=== PATIENT | male | born 1980 | race Caucasian/White ===

== ENCOUNTER → 2017-12-16 | Outpatient (REF) ==
[~2017-12-16] MED LIST: ASPIRIN EC81 MG PO; CIPRO500 MG PO; CIPROFLOXACN500 MG PO; CYCLOBENZAPR10 MG PO; FLOMAX0.4 M1 PO; GLYBURIDE5 M1 PO; LORTAB5 PO; METFORMIN HCL750 MG PO; NO CURRENT MEDS; NO MEDS; PERCOCET 5/325M1 TAB OR; PERCOCET 5/325M1 TAB PO; PRILOSEC40 MG PO; SLEEP MED PO; TESTOSTERONE IM
== END | disposition home or self-care (01) | DRG 639 ==
LOC: LABSPEC 07:39
PROVIDERS: ATTEND Internal Medicine Endocrinology, Diabetes & Metabolism
DX: E11.65 Type 2 diabetes mellitus with hyperglycemia (principal); E78.2 Mixed hyperlipidemia; Z13.29 Encounter for screening for other suspected endocrine disorder

== ENCOUNTER 2019-04-15 | Emergency (ER) | payer BC ==
[~2019-04-15] MED LIST changes: +DICLOFENAC75 MG PO; +FIASP100 UNIT/M; +MEDDOSEPAK PO; +OZEMPIC2 MG/1.5 M; +TOUJEO SOL300 UNIT/M; +TRAMADOL HCL50 MG PO
[2019-04-15] MEDS ORDERED: OZEMPIC2 MG/1.5 M SC (05:17)
[2019-04-15 05:38] LABS: HEMATOCRIT 52.5 % (39.0-50.0); HEMOGLOBIN 17.3 g/dl (14.0-18.0); IMMATURE GRANULOCYTES 0.5 % (0.0-5.0); MEAN CELL VOLUME 86.9 fL CALC (80.0-100.0); MEAN CORPUSCULAR HGB 28.6 pG CALC (26.0-32.0); NEUT# 12.18 thou/uL (1.82-7.42); RED BLOOD COUNT 6.04 mill/uL (4.70-6.10); RED CELL DISTRI WIDTH 12.9 % (11.5-15.5)
[2019-04-15 06:10] LABS: ALBUMIN 4.2 g/dL (3.2-5.0); ALKALINE PHOSPHATASE 131 u/l (38-126); ANION GAP 13 (6-22 (CALC)); BILIRUBIN, TOTAL 0.7 mg/dL (0.0-1.4); BUN 13 mg/dL (9-20); BUN/CREATININE RATIO 16 (12-20 (CALC)); CARBON DIOXIDE 27 mmol/l (22-30); CHLORIDE 105 mmol/l (95-108); CREATININE 0.8 mg/dL (0.7-1.3); GFR > 60 ML/MIN (>=60 (CALC)); GFR FOR AFR.AMER. > 60 ML/MIN (>=60 (CALC)); POTASSIUM 4.4 mmol/l (3.5-5.1); SGOT/AST 34 u/l (17-59); SODIUM 140 mmol/l (137-146); TOTAL PROTEIN 7.3 g/dL (6.3-8.2)
[2019-04-15 06:47] LABS: URINE BLOOD DIPSTICK LARGE (NEGATIVE); URINE GLUCOSE - DIPSTICK NEGATIVE (NEGATIVE); URINE KETONE NEGATIVE (NEGATIVE); URINE LEUK ESTERASE NEGATIVE (NEGATIVE); URINE NITRITE - DIPSTICK NEGATIVE (Negative); URINE PROTEIN - DIPSTICK 30 mg/dL (NEG-TRACE); URINE UROBILINOGEN - DIPSTICK 0.2 E.U./dL (0.2)
[2019-04-15 06:49] LABS: URINE BILIRUBIN - DIPSTICK SMALL (NEGATIVE); URINE COLOR DK. YELLOW
[2019-04-15 06:53] LABS: URINE RBC TNTC RBC/hpf (0-5); URINE SQUAMOUS EPITHELIAL CELL FEW EPI/hpf (0-FEW)
[2019-04-15] MEDS ORDERED: TORADOL PO (06:54)
[2019-04-15] MEDS ORDERED: TAMSULOSIN0.4 MG PO (06:54)
[2019-04-15] MEDS ORDERED: LORTAB 5/3255 MG PO (06:54)
== END 2019-04-15 07:13 | disposition home or self-care (01) | DRG 694 ==
PROVIDERS: Family Medicine
DX: N13.2 Hydronephrosis with renal and ureteral calculous obstruction (principal); E11.9 Type 2 diabetes mellitus without complications; F17.210 Nicotine dependence, cigarettes, uncomplicated

== ENCOUNTER 2019-04-18 08:15 | Emergency (ER) | payer BC ==
[~2019-04-18 08:15] MED LIST changes: +LORTAB 5/3255 MG PO; +OZEMPIC2 MG/1.5 M SC; +TAMSULOSIN0.4 MG PO; +TORADOL PO
== END 2019-04-18 08:37 | disposition left against medical advice (07) | DRG 951 ==
LOC: ED 08:15 → LWOBS 08:33 → ED 08:33 → LWOBS 08:37
DX: Z53.21 Procedure and treatment not carried out due to patient leaving prior to being seen by health care provider (principal)

== ENCOUNTER 2019-11-22 18:31 | Emergency (ER) | payer BC ==
[~2019-11-22] VITALS: Ht 195.6 cm; Wt 145.0 kg
[2019-11-22 19:24] LABS: IMMATURE GRANULOCYTES 0.5 % (0.0-5.0); MEAN CELL VOLUME 86.9 fL CALC (80.0-100.0); MEAN CORPUSCULAR HGB 28.3 pG CALC (26.0-32.0); MEAN CORPUSCULAR HGB CONC 32.6 g/dL CAL (32.0-36.0); NEUT# 10.36 thou/uL (1.82-7.42); RED BLOOD COUNT 5.41 mill/uL (4.70-6.10)
[2019-11-22 19:27] LABS: URINE BLOOD DIPSTICK LARGE (NEGATIVE); URINE COLOR YELLOW; URINE GLUCOSE - DIPSTICK NEGATIVE (NEGATIVE); URINE KETONE TRACE mg/dL (NEGATIVE); URINE LEUK ESTERASE NEGATIVE (NEGATIVE); URINE NITRITE - DIPSTICK NEGATIVE (Negative); URINE PH 5.5 (4.5-8.0); URINE PROTEIN - DIPSTICK TRACE mg/dL (NEG-TRACE); URINE SPECIFIC GRAVITY >=1.030; URINE UROBILINOGEN - DIPSTICK 0.2 E.U./dL (0.2)
[2019-11-22 19:28] LABS: URINE BILIRUBIN - DIPSTICK NEGATIVE (NEGATIVE)
[2019-11-22 19:40] LABS: URINE RBC 50-100 RBC/hpf (0-5)
[2019-11-22 19:41] LABS: HEMOGLOBIN 15.3 g/dl (14.0-18.0)
[2019-11-22 19:43] LABS: ALBUMIN 3.8 g/dL (3.2-5.0); ALKALINE PHOSPHATASE 120 u/l (38-126); ANION GAP 11 (6-22 (CALC)); BUN 13 mg/dL (9-20); BUN/CREATININE RATIO 17 (12-20 (CALC)); CARBON DIOXIDE 29 mmol/l (22-30); CHLORIDE 103 mmol/l (95-108); CREATININE 0.8 mg/dL (0.7-1.3); GFR > 60 ML/MIN (>=60 (CALC)); GFR FOR AFR.AMER. > 60 ML/MIN (>=60 (CALC)); LIPASE 75 u/l (23-300); POTASSIUM 4.2 mmol/l (3.5-5.1); SGOT/AST 18 u/l (17-59); SODIUM 138 mmol/l (137-146); TOTAL PROTEIN 6.4 g/dL (6.3-8.2)
[2019-11-22 19:44] LABS: BILIRUBIN, TOTAL 0.3 mg/dL (0.0-1.4)
[2019-11-22] MEDS ORDERED: LORTAB 1010 MG PO (20:32)
[2019-11-22] MEDS ORDERED: TAMSULOSIN0.4 MG PO (20:32)
[2019-11-22] MEDS ORDERED: KEFLEX500 M1 PO (20:32)
[2019-11-22 20:50] VITALS: BP 136/81
== END 2019-11-22 20:50 | disposition home or self-care (01) | DRG 690 ==
LOC: ED 18:31
PROVIDERS: Family Medicine
DX: N13.6 Pyonephrosis (principal); E11.9 Type 2 diabetes mellitus without complications; F17.210 Nicotine dependence, cigarettes, uncomplicated

== ENCOUNTER 2020-03-16 21:08 | Emergency (ER) | payer BC ==
[~2020-03-16] VITALS: Ht 195.6 cm; Wt 145.0 kg
[~2020-03-16 21:08] MED LIST changes: +KEFLEX500 M1 PO; +LORTAB 1010 MG PO
[2020-03-16] MEDS ORDERED: FLEXERIL5 M1 PO (21:48)
[2020-03-16 21:52] LABS: HEMATOCRIT 50.6 % (39.0-50.0); HEMOGLOBIN 16.8 g/dl (14.0-18.0); IMMATURE GRANULOCYTES 0.5 % (0.0-5.0); MEAN CELL VOLUME 87.1 fL CALC (80.0-100.0); MEAN CORPUSCULAR HGB 28.9 pG CALC (26.0-32.0); MEAN CORPUSCULAR HGB CONC 33.2 g/dL CAL (32.0-36.0); NEUT# 9.38 thou/uL (1.82-7.42); RED BLOOD COUNT 5.81 mill/uL (4.70-6.10)
[2020-03-16 22:04] LABS: ALBUMIN 4.2 g/dL (3.2-5.0); ALKALINE PHOSPHATASE 121 u/l (38-126); ANION GAP 12 (6-22 (CALC)); BILIRUBIN, TOTAL 0.4 mg/dL (0.0-1.4); BUN 13 mg/dL (9-20); BUN/CREATININE RATIO 14 (12-20 (CALC)); CARBON DIOXIDE 26 mmol/l (22-30); CHLORIDE 105 mmol/l (95-108); CREATININE 0.9 mg/dL (0.7-1.3); GFR > 60 ML/MIN (>=60 (CALC)); GFR FOR AFR.AMER. > 60 ML/MIN (>=60 (CALC)); POTASSIUM 4.6 mmol/l (3.5-5.1); SGOT/AST 23 u/l (17-59); SODIUM 138 mmol/l (137-146); TOTAL PROTEIN 6.9 g/dL (6.3-8.2)
[2020-03-16 22:31] LABS: URINE BILIRUBIN - DIPSTICK NEGATIVE (NEGATIVE); URINE BLOOD DIPSTICK LARGE (NEGATIVE); URINE COLOR YELLOW; URINE GLUCOSE - DIPSTICK 500 mg/dL (NEGATIVE); URINE KETONE NEGATIVE (NEGATIVE); URINE LEUK ESTERASE NEGATIVE (NEGATIVE); URINE NITRITE - DIPSTICK NEGATIVE (Negative); URINE PROTEIN - DIPSTICK TRACE mg/dL (NEG-TRACE); URINE SPECIFIC GRAVITY >=1.030; URINE UROBILINOGEN - DIPSTICK 0.2 E.U./dL (0.2)
[2020-03-16 22:39] LABS: URINE BACTERIA FEW hpf; URINE RBC 50-100 RBC/hpf (0-5); URINE SQUAMOUS EPITHELIAL CELL FEW EPI/hpf (0-FEW); URINE WBC 0-2 WBC/hpf (0-5)
[2020-03-16 22:53] VITALS: BP 120/73
[2020-03-16] MEDS ORDERED: TAMSULOSIN0.4 MG PO (22:57)
[2020-03-16] MEDS ORDERED: LORTAB5 PO (22:57)
== END 2020-03-16 22:53 | disposition home or self-care (01) | DRG 694 ==
LOC: ED 21:08
PROVIDERS: Family Medicine
DX: N20.0 Calculus of kidney (principal); E11.9 Type 2 diabetes mellitus without complications; F17.200 Nicotine dependence, unspecified, uncomplicated; Z87.442 Personal history of urinary calculi; Z79.899 Other long term (current) drug therapy

== ENCOUNTER 2020-04-27 12:13 | Emergency (ER) | payer BC ==
[~2020-04-27] VITALS: Ht 195.6 cm; Wt 147.7 kg
[~2020-04-27 12:13] MED LIST changes: +FLEXERIL5 M1 PO
[2020-04-27 12:44] LABS: HEMATOCRIT 53.1 % (39.0-50.0); HEMOGLOBIN 17.5 g/dl (14.0-18.0); IMMATURE GRANULOCYTES 0.5 % (0.0-5.0); MEAN CELL VOLUME 86.9 fL CALC (80.0-100.0); MEAN CORPUSCULAR HGB 28.6 pG CALC (26.0-32.0); NEUT# 12.16 thou/uL (1.82-7.42); RED BLOOD COUNT 6.11 mill/uL (4.70-6.10); RED CELL DISTRI WIDTH 12.7 % (11.5-15.5)
[2020-04-27 13:11] LABS: ALBUMIN 4.5 g/dL (3.2-5.0); ALKALINE PHOSPHATASE 145 u/l (38-126); ANION GAP 14 (6-22 (CALC)); BILIRUBIN, TOTAL 0.5 mg/dL (0.0-1.4); BUN 14 mg/dL (9-20); BUN/CREATININE RATIO 17 (12-20 (CALC)); CARBON DIOXIDE 25 mmol/l (22-30); CHLORIDE 101 mmol/l (95-108); CREATININE 0.8 mg/dL (0.7-1.3); GFR > 60 ML/MIN (>=60 (CALC)); GFR FOR AFR.AMER. > 60 ML/MIN (>=60 (CALC)); LIPASE 174 u/l (23-300); POTASSIUM 4.2 mmol/l (3.5-5.1); SGOT/AST 26 u/l (17-59); SODIUM 136 mmol/l (137-146); TOTAL PROTEIN 7.7 g/dL (6.3-8.2)
[2020-04-27 13:25] LABS: URINE BILIRUBIN - DIPSTICK NEGATIVE (NEGATIVE); URINE BLOOD DIPSTICK LARGE (NEGATIVE); URINE COLOR YELLOW; URINE GLUCOSE - DIPSTICK NEGATIVE (NEGATIVE); URINE KETONE TRACE mg/dL (NEGATIVE); URINE LEUK ESTERASE NEGATIVE (NEGATIVE); URINE NITRITE - DIPSTICK NEGATIVE (Negative); URINE PH 5.5 (4.5-8.0); URINE PROTEIN - DIPSTICK 30 mg/dL (NEG-TRACE); URINE SPECIFIC GRAVITY >=1.030; URINE UROBILINOGEN - DIPSTICK 0.2 E.U./dL (0.2)
[2020-04-27] MEDS ORDERED: ZOFRAN4 MG/TAB PO (14:02)
[2020-04-27] MEDS ORDERED: CIPROFLOXACN500 MG PO (14:02)
[2020-04-27] MEDS ORDERED: OXYCODO-APAP1 TA2 PO (14:02)
[2020-04-27 14:29] VITALS: BP 142/92
== END 2020-04-27 14:34 | disposition home or self-care (01) | DRG 694 ==
LOC: ED 12:13
DX: N13.2 Hydronephrosis with renal and ureteral calculous obstruction (principal); E11.9 Type 2 diabetes mellitus without complications; Z87.442 Personal history of urinary calculi; F17.210 Nicotine dependence, cigarettes, uncomplicated

== ENCOUNTER 2021-01-12 13:48 | Emergency (ER) | payer BC ==
[~2021-01-12] VITALS: Ht 195.6 cm; Wt 140.0 kg
[~2021-01-12 13:48] MED LIST changes: +GABAPENTIN400 M2 PO; +LEVOTHYROXIN125 MC1 PO; +METFORMIN HCL1000 MG PO; +OXYCODO-APAP1 TA2 PO; +ROSUVASTATIN CA40 MG PO; +TRESIBA FL200 UNIT/M IJ; +ZOFRAN4 MG/TAB PO
[2021-01-12 15:32] LABS: HEMATOCRIT 50.5 % (39.0-50.0); HEMOGLOBIN 17.3 g/dl (14.0-18.0); IMMATURE GRANULOCYTES 0.2 % (0.0-5.0); MEAN CELL VOLUME 86.8 fL CALC (80.0-100.0); MEAN CORPUSCULAR HGB 29.7 pG CALC (26.0-32.0); MEAN CORPUSCULAR HGB CONC 34.3 g/dL CAL (32.0-36.0); NEUT# 8.87 thou/uL (1.82-7.42); RED BLOOD COUNT 5.82 mill/uL (4.70-6.10); RED CELL DISTRI WIDTH 12.9 % (11.5-15.5)
[2021-01-12 15:47] LABS: ALBUMIN 3.8 g/dL (3.2-5.0); ALKALINE PHOSPHATASE 114 u/l (38-126); ANION GAP 10 (6-22 (CALC)); BILIRUBIN, TOTAL 0.5 mg/dL (0.0-1.4); BUN 10 mg/dL (9-20); BUN/CREATININE RATIO 15 (12-20 (CALC)); CARBON DIOXIDE 32 mmol/l (22-30); CHLORIDE 97 mmol/l (95-108); CREATININE 0.7 mg/dL (0.7-1.3); GFR > 60 ML/MIN (>=60 (CALC)); GFR FOR AFR.AMER. > 60 ML/MIN (>=60 (CALC)); POTASSIUM 4.4 mmol/l (3.5-5.1); SGOT/AST 22 u/l (17-59); SODIUM 135 mmol/l (137-146); TOTAL PROTEIN 6.5 g/dL (6.3-8.2)
[2021-01-12] MEDS ORDERED: FIORICET PO (16:54)
[2021-01-12] MEDS ORDERED: ZOFRAN4 MG/TAB PO (16:54)
[2021-01-12 17:34] VITALS: BP 161/95
== END 2021-01-12 17:40 | disposition home or self-care (01) | DRG 103 ==
LOC: ED 13:48
DX: G43.909 Migraine, unspecified, not intractable, without status migrainosus (principal); E11.9 Type 2 diabetes mellitus without complications; F17.200 Nicotine dependence, unspecified, uncomplicated; Z79.84 Long term (current) use of oral hypoglycemic drugs; Z79.4 Long term (current) use of insulin